=== PATIENT | male | born 1985 | race Caucasian/White ===

== ENCOUNTER 2021-09-25 20:11 | Inpatient (IN) | payer BC ==
[2021-09-25 20:47] LABS: #Eosinphils 0.1 thou/uL (0.0-0.7); #Monocytes 0.4 thou/uL (0.11-0.59); #Neutrophils 3.1 thou/uL (1.40-6.50); %Basophils 0.9 % (0.0-1.0); %Eosinophils 1.9 % (0.0-10.0); %Lymphocytes 21.8 % (21.0-51.0); %Monocytes 8.4 % (0.0-10.0); %Neutrophils 66.9 % (42.0-75.0); Hemoglobin 14.2 g/dL (14.0-18.0); Mean Corpuscular HGB CONC 33.4 g/dL (32.0-36.0); Mean Corpuscular Hemoglobin 32.7 pg (27.0-31.0); Mean Corpuscular Volume 97.8 fL (78.0-98.0); Mean Platelet Volume 7.9 fL (7.4-10.4); Platelet Count 146 thou/uL (130-400); RBC Distribution Width 14.1 % (11.5-14.5); Red Blood Cell (RBC) Count 4.36 mill/uL (4.70-6.10); White Blood Cell (WBC) Count 4.7 thou/uL (4.8-10.8)
[2021-09-25 21:03] LABS: Acetaminophen Less than 6.0 mcg/mL (10.0-30.0); Alcohol 360 mg/dL (Less than 10); CK (CPK) 1229 U/L (30-200); Salicylate Less than 8.0 mg/dL (15.0-30.0)
[2021-09-25] MEDS ORDERED: Naloxone HCl 2 mg/2 ml Syringe ONE (21:04)
[2021-09-25 21:05] LABS: ALT (SGPT) 96 U/L (8-55); AST (SGOT) 137 U/L (5-34); Alkaline Phosphatase 146 U/L (40-110); Anion Gap 18 mmol/L (10-20); BUN (Urea Nitrogen) 10 mg/dL (8.9-20.6); Bilirubin, Total 0.5 mg/dL (0.2-1.2); Calc. Creatinine Clearance 0 mL/min (70-130); Calcium 8.2 mg/dL (7.8-10.44); Carbon Dioxide 26 mmol/L (22-29); Chloride 99 mmol/L (98-107); Globulin 3.1 g/dL (2.4-3.5); Glucose 97 mg/dL (70-105); Lipase 95 U/L (8-78); Potassium 3.8 mmol/L (3.5-5.1); Protein, Total 7.1 g/dL (6.0-8.3); Sodium 139 mmol/L (136-145)
[2021-09-25 21:05] LABS: Bilirubin Negative (Negative); Blood, Urine Negative (Negative); Clarity Clear (Clear); Glucose, Urine (Dipstick) Normal (Negative); Ketone, Urine Negative (Negative); Leukocyte Negative Leu/uL (Negative); Nitrite Negative (Negative); Protein, Urine (Dipstick) Negative (Neg-Trace); Specific Gravity, Urine 1.006 (1.002-1.036); Urobilinogen Normal mg/dL (Less than 2); pH, Urine 6.5 (5.0-9.0)
[2021-09-25 21:12] LABS: Amphetamine Not Detected (NotDetected); Barbiturates Screen Not Detected (NotDetected); Benzodiazepine Screen Not Detected (NotDetected); Cocaine Metabolite Screen Not Detected (NotDetected); Methadone Detected (NotDetected); Methamphetamine Not Detected (NotDetected); Opiate Screen Not Detected (NotDetected); Oxycodone Screen Not Detected (NotDetected); Phencyclidine (PCP) Not Detected (NotDetected); THC/Cannabinoid Screen Not Detected (NotDetected); Tricyclic Screen Not Detected (NotDetected)
[2021-09-25] MEDS ORDERED: Ketamine 50 MG/ML (10ML VIAL) ONE (21:31)
[2021-09-26] MEDS ORDERED: Lorazepam 2 MG/ML VIAL ONE (01:04)
[2021-09-26] MEDS ORDERED: Ziprasidone 20 MG VIAL ONE (01:11)
[2021-09-26] MEDS ORDERED: Thiamine HCl 200 MG/2 ML VIAL SLOW IVP SCH (01:30)
[2021-09-26] MEDS ORDERED: Folic Acid 1 MG, Multivitamins, Adult 10 ML in Dextrose 5 %-0.45 % NaCl 1,000 ML IV SCH (01:30)
[2021-09-26] MEDS ORDERED: Lorazepam 2 MG/ML VIAL IM PRN (02:09)
[2021-09-26] MEDS ORDERED: Acetaminophen 325 MG TAB PO PRN (02:09)
[2021-09-26] MEDS ORDERED: Acetaminophen 650 MG Suppository PR PRN (02:09)
[2021-09-26] MEDS ORDERED: Ondansetron ODT 4 MG TAB PO PRN ×2 (02:09)
[2021-09-26] MEDS ORDERED: Ondansetron PF 4 MG/2 ML Vial IVP PRN (02:09)
[2021-09-26] MEDS ORDERED: Electrolyte Replacement Protocol 1 EACH FS SCH (02:15)
[2021-09-26 03:55] LABS: #Basophils 0.1 thou/uL (0.0-0.2); #Eosinphils 0.1 thou/uL (0.0-0.7); #Monocytes 0.5 thou/uL (0.11-0.59); #Neutrophils 2.6 thou/uL (1.40-6.50); %Basophils 1.4 % (0.0-1.0); %Eosinophils 1.3 % (0.0-10.0); %Lymphocytes 24.3 % (21.0-51.0); %Monocytes 10.8 % (0.0-10.0); %Neutrophils 62.3 % (42.0-75.0); Hemoglobin 13.6 g/dL (14.0-18.0); Mean Corpuscular Hemoglobin 32.3 pg (27.0-31.0); Mean Corpuscular Volume 97.9 fL (78.0-98.0); Platelet Count 139 thou/uL (130-400); RBC Distribution Width 14.3 % (11.5-14.5); Red Blood Cell (RBC) Count 4.22 mill/uL (4.70-6.10); White Blood Cell (WBC) Count 4.2 thou/uL (4.8-10.8)
[2021-09-26 04:15] LABS: Magnesium 1.9 mg/dL (1.6-2.6); Phosphorus 4.2 mg/dL (2.3-4.7)
[2021-09-26 04:17] LABS: Anion Gap 13 mmol/L (10-20); BUN (Urea Nitrogen) 9 mg/dL (8.9-20.6); CK (CPK) 946 U/L (30-200); Calc. Creatinine Clearance 164 mL/min (70-130); Calcium 7.6 mg/dL (7.8-10.44); Carbon Dioxide 26 mmol/L (22-29); Chloride 105 mmol/L (98-107); Glucose 109 mg/dL (70-105); Potassium 3.6 mmol/L (3.5-5.1); Sodium 140 mmol/L (136-145)
[2021-09-26] MEDS: Sodium Chloride 0.9% 1,000 ML IV SCH ×2 (04:38→11:59)
[2021-09-26] MEDS ORDERED: Magnesium 2 GM/50 ML 2 GM in Premix Bag 1 BAG IVPB SCH (06:30)
[2021-09-26 06:46] LABS: SARS-CoV-2 NAA Rapid Test Not Detected (NotDetected)
[2021-09-26] MEDS: Lorazepam 1 MG TAB PO SCH ×4 (07:15→23:10)
[2021-09-26] MEDS: Gabapentin 400 MG CAP PO SCH ×5 (09:02→20:49)
[2021-09-26] MEDS: Folic Acid 1 MG TAB PO SCH (09:03)
[2021-09-26] MEDS: Multivit, Therapeutic 1 TAB PO SCH (09:03)
[2021-09-26] MEDS: Enoxaparin Sodium 40 MG/0.4 ML SYRINGE SC SCH (09:04)
[2021-09-26] MEDS: Lorazepam 1 MG TAB PO PRN ×2 (09:04→15:19)
[2021-09-26] MEDS: Venlafaxine HCl 25 MG TAB PO SCH ×2 (09:05→20:49)
[2021-09-26] MEDS: Thiamine HCl 200 MG/2 ML VIAL SLOW IVP SCH (12:37)
[2021-09-26] MEDS ORDERED: METHadone HCl 10 MG TAB PO SCH (16:00)
[2021-09-27] MEDS: Sodium Chloride 0.9% 1,000 ML IV SCH ×2 (02:00→08:33)
[2021-09-27] MEDS ORDERED: Lorazepam 1 MG TAB PO PRN (02:09)
[2021-09-27 03:51] LABS: Albumin 3.7 g/dL (3.5-5.0)
[2021-09-27 03:52] LABS: Chloride 100 mmol/L (98-107); Potassium 3.8 mmol/L (3.5-5.1); Sodium 132 mmol/L (136-145)
[2021-09-27 03:53] LABS: Calcium 8.4 mg/dL (7.8-10.44); Glucose 102 mg/dL (70-105)
[2021-09-27 03:54] LABS: Globulin 3.2 g/dL (2.4-3.5); Protein, Total 6.9 g/dL (6.0-8.3)
[2021-09-27 03:55] LABS: Anion Gap 10 mmol/L (10-20); Bilirubin, Total 0.7 mg/dL (0.2-1.2); Carbon Dioxide 26 mmol/L (22-29)
[2021-09-27 03:56] LABS: Alkaline Phosphatase 144 U/L (40-110)
[2021-09-27 03:57] LABS: BUN (Urea Nitrogen) 7 mg/dL (8.9-20.6); Calc. Creatinine Clearance 170 mL/min (70-130)
[2021-09-27 03:59] LABS: ALT (SGPT) 84 U/L (8-55); AST (SGOT) 92 U/L (5-34); Magnesium 2.2 mg/dL (1.6-2.6)
[2021-09-27 04:00] LABS: CK (CPK) 549 U/L (30-200); Lipase 32 U/L (8-78)
[2021-09-27] MEDS: Lorazepam 1 MG TAB PO SCH ×2 (05:43→12:29)
[2021-09-27] MEDS: Folic Acid 1 MG TAB PO SCH (08:27)
[2021-09-27] MEDS: Venlafaxine HCl 25 MG TAB PO SCH (08:27)
[2021-09-27] MEDS: Multivit, Therapeutic 1 TAB PO SCH (08:28)
[2021-09-27] MEDS: Gabapentin 400 MG CAP PO SCH ×2 (08:28→13:07)
[2021-09-27] MEDS: Enoxaparin Sodium 40 MG/0.4 ML SYRINGE SC SCH ×2 (08:30→08:31)
[2021-09-27] MEDS ORDERED: METHadone HCl 10 MG TAB PO SCH ×2 (09:00→12:00)
[2021-09-27] MEDS: Thiamine HCl 200 MG/2 ML VIAL SLOW IVP SCH (11:05)
[2021-09-28] MEDS ORDERED: Lorazepam 1 MG TAB PO PRN (02:09)
[2021-09-28] MEDS ORDERED: Lorazepam 0.5 MG TAB PO SCH (06:00)
[2021-09-29] MEDS ORDERED: Lorazepam 0.5 MG TAB PO PRN (02:09)
[2021-09-29] MEDS ORDERED: Thiamine 100 MG TAB PO SCH (09:00)
== END 2021-09-27 13:30 | disposition home or self-care (01) | DRG 917 ==
LOC: ERS 20:11 → EDBD 20:11 → IMCU/EMU 09-26 00:42
PROVIDERS: ADMIT Student in an Organized Health Care Education/Training Program; ATTEND Family Medicine
PROC: HZ2ZZZZ Detoxification Services for Substance Abuse Treatment (ICD-10-PCS; principal; 2021-09-26)
DX: T40.3X1A Poisoning by methadone, accidental (unintentional), initial encounter (principal); G92.8 Other toxic encephalopathy; F11.20 Opioid dependence, uncomplicated; Z20.822 Contact with and (suspected) exposure to COVID-19; F31.9 Bipolar disorder, unspecified; F20.9 Schizophrenia, unspecified; F15.10 Other stimulant abuse, uncomplicated; F10.229 Alcohol dependence with intoxication, unspecified; G40.909 Epilepsy, unspecified, not intractable, without status epilepticus; T51.0X1A Toxic effect of ethanol, accidental (unintentional), initial encounter; K70.10 Alcoholic hepatitis without ascites; Y90.8 Blood alcohol level of 240 mg/100 ml or more; Z78.1 Physical restraint status; Z79.899 Other long term (current) drug therapy
CPT/HCPCS: 36415; 70450; 71045; 80048; 80053; 80306; 80307; 81003; 82550; 83690; 83735; 84100; 84146; 85025; 93005; J1650; J2060; J2310; J3411; J3475; J3486; J7042; J7050; U0002

== ENCOUNTER 2021-10-09 23:48 | Emergency (ER) | payer BC | END 2021-10-10 00:05 | LOC: ERS 23:48 | DX: Z48.817 Encounter for surgical aftercare following surgery on the skin and subcutaneous tissue (principal) | CPT/HCPCS: 99283 ==